=== PATIENT | female | born 1985 | race Caucasian/White ===

== ENCOUNTER 2017-09-13 22:24 | Emergency (ER) | payer SELFPAY ==
[2017-09-13] MEDS ORDERED: MORPHINE SULFATE 10 MG/ML INJ IV ONE ×2 (23:01→23:57)
[2017-09-13] MEDS ORDERED: ONDANSETRON HCL INJ/PF 4 MG/2 ML SDV IV ONE (23:02)
--- NOTE | 2017-09-13 23:05 | ER Document Report ---
ED General - General Chief Complaint: Fever, bilat. flank pain, dizziness Stated Complaint: FEVER,DIZZY,CHILLS Time Seen by Provider: 09/13/17 22:56 Notes: Patient is a 32-year-old female presents with complaint of fevers and pain and not feeling well. Patient says that she has not been eating or drinking well and has felt sick since approximately Wednesday. She says today she started having worsening pain and got much worse. Start having fevers today. Fever in triage is 102.6. She says she has a lot of pain in her back is worse in the left. She also has some anterior abdominal pain. The abdominal pain is more than the right. She says she has not urinated since this morning. Her says she has not been eating or drinking much over last several days. She is lost approximately 10 pounds. She has had a mild cough which started today. No runny nose or congestion. No diarrhea. She does have history of kidney stones. She also has history of UTIs. She has never required ureteral stenting or nephrostomy tubes. No abnormal vaginal discharge or bleeding. TRAVEL OUTSIDE OF THE [place] IN LAST 30 DAYS: No - Related Data Allergies/Adverse Reactions: carisoprodol [From Soma] Allergy (Verified 10/30/15 15:13) trazodone [Trazodone] Allergy (Verified 10/30/15 15:13) Past Medical History - Social History Smoking Status: Never Smoker Chew tobacco use (# tins/day): No Frequency of alcohol use: None Drug Abuse: None Family History: Reviewed & Not Pertinent Patient has suicidal ideation: No Patient has homicidal ideation: No - Past Medical History Cardiac Medical History: Reports: Hx DVT Renal/ Medical History: Reports: Hx Kidney Stones, Hx Ovarian Cysts. Denies: Hx Peritoneal Dialysis Past Surgical History: Reports: Hx Orthopedic Surgery - left knee surgery - Immunizations Hx Diphtheria, Pertussis, Tetanus Vaccination: No Review of Systems - Review of Systems Notes: My Normal Review Basic REVIEW OF SYSTEMS: CONSTITUTIONAL : Fever EENT: Denies eye, ear, throat, or mouth pain or symptoms. Denies nasal or sinus congestion. CARDIOVASCULAR: Denies chest pain. RESPIRATORY: Mild cough GASTROINTESTINAL: Abdominal pain GENITOURINARY: decreased urination FEMALE GENITOURINARY: Denies vaginal bleeding, abnormal or irregular periods. MUSCULOSKELETAL: Denies neck or back pain or joint pain or swelling. SKIN: Denies rash or skin lesions. NEUROLOGICAL: Denies altered mental status or loss of consciousness. Denies headache. Denies weakness or paralysis or loss of use of either side. Denies problems with gait or speech. Denies sensory or motor loss. ALL OTHER SYSTEMS REVIEWED AND NEGATIVE. Physical Exam - Vital signs Vitals: Temp Pulse Resp BP Pulse Ox 102.6 F H 136 H 24 H 98/61 L 94 09/13/17 22:43 09/13/17 22:43 09/13/17 22:43 09/13/17 22:43 09/13/17 22:43 - Notes Notes: General Appearance: Well nourished, alert, cooperative, no acute distress, moderate obvious discomfort. Vitals: reviewed, See vital signs table. Head: no swelling or tenderness to the head Eyes: PERRL, EOMI, Conjuctiva clear Mouth: No decreasd moisture Throat: No tonsillar inflammation, No airway obstruction, Neck: Supple, no neck tenderness, No thyromegaly Lungs: No wheezing, No rales, No rhonci, No accessory muscle use, good air exchange bilaterally. Heart: Tachycardic rate, Regular rythm, No murmur, no rub Abdomen: Normal BS, soft, No rigidity, some right-sided abdominal tenderness palpation. Pain is both of the upper and lower part of the right side of the abdomen. No reproducible pain to palpation left side of abdomen. Abdomen is not acutely surgical appearing and that it is soft and not rigid or firm. Back: Bilateral positive Alfredo's sign. No redness or swelling to the back. Extremities: strength 5/5 in all extremities, good pulses in all extremities, no swelling or tenderness in the extremities, no edema. Skin: warm, dry, appropriate color, no rash Neuro: speech clear, oriented x 3, normal affect, responds appropriately to questions. Course - Re-evaluation Re-evalutation: 09/14/17 01:38 Patient's pain is improving however she still has some pain to palpation of abdomen. Abdomen remains soft and still nonsurgical. However since she does have some continued pain and her urine does not show evidence of infection I will obtain a scan to rule out kidney stone and other sources of potential fever and abdominal pain. Patient is agreeable to this. Her pressure is actually untreated some despite receiving 2 L of IV fluids. I will order 1/3 L IV fluid and also order a lactic acid as well as a blood culture. Heart rate is starting to improve some but is still in the 110s. 09/14/17 04:47 Patient looks and feels much improved. Her vital signs have normalized. The only source of infection showing up is basilar pneumonia. Will place her on Levaquin. I did give her a dose of Rocephin and azithromycin here. Obtain CT scan of abdomen due to the initial pain that she was having. This was negative. I initially suspected pyelonephritis due to her back pain but her urinalysis completely normal. Suspect maybe her back pain is related to the pneumonia itself. Patient will be discharged home but I informed her that she must return to ER immediately if she has any difficulty breathing, recurrent fevers, vomiting, worsening pain, or she feels that she is worsening in any way. Patient agrees with plan will be discharged home. Dictation of this chart was performed using voice recognition software; therefore, there may be some unintended grammatical errors. - Vital Signs Vital signs: Temp Pulse Resp BP Pulse Ox 99.4 F 136 H 10 L 98/65 L 96 09/14/17 01:58 09/13/17 22:43 09/14/17 05:01 09/14/17 05:01 09/14/17 05:01 - Laboratory Result Diagrams: 09/13/17 23:15 09/13/17 23:15 Laboratory results interpreted by me: 09/13/17 09/13/17 09/14/17 23:15 23:15 00:57 Seg Neutrophils % 85.7 H Lymphocytes % 5.9 L Absolute Lymphocytes 0.3 L Glucose 111 H Urine Ketones 20 H Urine Urobilinogen 4.0 H Urine Ascorbic Acid 40 H Discharge - Discharge Clinical Impression: Pneumonia Qualifiers: Pneumonia type: due to unspecified organism Laterality: bilateral Lung location : lower lobe of lung Qualified Code(s): J18.9 - Pneumonia, unspecified organism Condition: Good Disposition: HOME, SELF-CARE Additional Instructions: You have been prescribed an antibiotic that is in the class of antibiotics called fluoroquinolones. On rare occasions these can cause weakness of the tendons. You should therefore avoid any type of heavy lifting or sporting activities while you are on this antibiotic and up to 1 week after stopping it. Please take the antibiotics as prescribed. Please have a low threshold to return to the ER if you have worsening pain, fevers, difficulty breathing, vomiting, lightheadedness, or if you feel that you are worsening. Please drink clears fluids through out the day. Gatorade is okay as well. Please follow up with a doctor in 2 days for reevaluation. You can return to the ER for reevaluation if you do not have a primary care doctor to follow up with. Prescriptions: Levofloxacin [Levaquin 750 mg Tablet] 750 mg PO DAILY #5 tablet Forms: Return to Work
[2017-09-13] MEDS: NORMAL SALINE 1000 ML 1,000 ML IV PRN ×2 (23:13→23:23)
[2017-09-13 23:29] LABS: ABSOLUTE LYMPHOCYTES (AUTO) 0.3 10^3/uL (0.5-4.7); ABSOLUTE MONOCYTES (AUTO) 0.4 10^3/uL (0.1-1.4); ABSOLUTE NEUT (AUTO) 4.7 10^3/uL (1.7-8.2); BASOPHILS % (AUTO) 0.3 % (0-2); HEMATOCRIT 42.1 % (36.0-47.0); HEMOGLOBIN 14.1 g/dL (12.0-15.5); LYMPHOCYTES % (AUTO) 5.9 % (13-45); MEAN CORPUSCULAR HEMOGLOBIN 30.5 pg (27.0-33.4); MEAN CORPUSCULAR HGB CONC 33.6 g/dL (32.0-36.0); MEAN CORPUSCULAR VOLUME 91 fl (80-97); MONOCYTES % (AUTO) 8.1 % (3-13); PLATELET COUNT 252 10^3/uL (150-450); RED BLOOD COUNT 4.64 10^6/uL (3.72-5.28); RED CELL DISTRIBUTION WIDTH 12.9 % (11.5-14.0); SEGMENTED NEUTROPHILS % (AUTO) 85.7 % (42-78); TOTAL CELLS COUNTED % (AUTO) 100 %; WHITE BLOOD COUNT 5.4 10^3/uL (4.0-10.5)
[2017-09-13 23:41] LABS: ALANINE AMINOTRANSFERASE 32 U/L (9-52); ALBUMIN 4.4 g/dL (3.5-5.0); ALKALINE PHOSPHATASE 69 U/L (38-126); ANION GAP 13 (5-19); ASPARTATE AMINO TRANSFERASE 27 U/L (14-36); BILIRUBIN,DIRECT 0.3 mg/dL (0.0-0.4); BILIRUBIN,TOTAL 0.5 mg/dL (0.2-1.3); BLOOD UREA NITROGEN 15 mg/dL (7-20); CALCIUM 9.6 mg/dL (8.4-10.2); CARBON DIOXIDE 22 mmol/L (22-30); CHLORIDE 103 mmol/L (98-107); GLUCOSE 111 mg/dL (75-110); POTASSIUM 4.1 mmol/L (3.6-5.0); TOTAL PROTEIN 7.6 g/dL (6.3-8.2)
[2017-09-13 23:42] LABS: A TYPE INFLUENZA AG NEGATIVE (NEGATIVE); B INFLUENZA AG NEGATIVE (NEGATIVE)
[2017-09-14] MEDS ORDERED: KETOROLAC TROMETHAMINE INJ/PF 30 MG/1 ML SDV IV ONE (00:05)
[2017-09-14] MEDS ORDERED: ACETAMINOPHEN 325 MG TABLET PO ONE (00:06)
--- NOTE | 2017-09-14 01:19 | RADIOLOGY REPORT (SQ) ---
EXAM DESCRIPTION: CHEST SINGLE VIEW CLINICAL HISTORY: 32 years, Female, cough, abdominal pain COMPARISON: CT, abdomen pelvis, 03/23/2016, report only. LIMITATIONS: None. FINDINGS: Small left basilar bandlike opacity, moderate lung volume, normal cardiac silhouette, and intact bony thorax. IMPRESSION: Small left basilar atelectasis, scar, and/or pneumonia. 2011 [employer]- All Rights Reserved
[2017-09-14 01:21] LABS: APPEARANCE,URINE SLIGHTLY-CLOUDY; BILIRUBIN,URINE NEGATIVE (NEGATIVE); COLOR,URINE YELLOW; GLUCOSE, URINE NEGATIVE (NEGATIVE); KETONES,URINE 20 mg/dL (NEGATIVE); LEUKOCYTE ESTERASE,URINE NEGATIVE (NEGATIVE); NITRITE,URINE NEGATIVE (NEGATIVE); PROTEIN,URINE NEGATIVE (NEGATIVE); URINE SPECIFIC GRAVITY 1.027
[2017-09-14] MEDS ORDERED: CEFTRIAXONE INJ 1000 MG VIAL IV ONE (01:44)
--- NOTE | 2017-09-14 03:37 | RADIOLOGY REPORT (SQ) ---
EXAM DESCRIPTION: CT ABD/PELVIS NO ORAL OR IV CLINICAL HISTORY: 32 years Female, back and abdominal pain COMPARISON: 03/22/2016. TECHNIQUE: No contrast. Coronal and sagittal reformat. This exam was performed according to our departmental dose-optimization program, which includes automated exposure control, adjustment of the mA and/or kV according to patient size and/or use of iterative reconstruction technique. FINDINGS: Small bilateral lower lobar dependent atelectasis or pneumonia. Small bilateral nephrolithiasis measures up to 0.3 cm on the left. IUD. Normal appendix. Unenhanced inferior chest, intra-abdominal/intrapelvic structures, and musculoskeleton appear otherwise grossly intact. IMPRESSION: 1. Small bilateral lower lobar atelectasis/pneumonia. 2. Small bilateral nephrolithiasis without complication.
[2017-09-14] MEDS ORDERED: AZITHROMYCIN INJ 500 MG VIAL IV ONE (03:43)
[2017-09-14 05:14] VITALS: BP 98/65
== END 2017-09-14 05:14 | disposition home or self-care (01) ==
LOC: ER 22:24
DX: J18.9 Pneumonia, unspecified organism (principal); R50.9 Fever, unspecified; M54.9 Dorsalgia, unspecified; R10.11 Right upper quadrant pain; R10.31 Right lower quadrant pain; R39.89 Other symptoms and signs involving the genitourinary system; R05 Cough; R63.4 Abnormal weight loss; Z68.29 Body mass index [BMI] 29.0-29.9, adult; Z87.442 Personal history of urinary calculi; Z87.440 Personal history of urinary (tract) infections; Z88.8 Allergy status to other drugs, medicaments and biological substances; Z86.718 Personal history of other venous thrombosis and embolism
CPT/HCPCS: 96376; 99284; 96361; 51701; 96375; 96365; 96367; 36415; 87040; 84703; 85025; 80053; 81001; 83605; 87804; 71045; 74176; J1885; J2270 ×2; J0696; J2405; J7030; J0456